=== PATIENT | male | born 1985 | race Hispanic/Latino ===

== ENCOUNTER 2016-09-10 21:14 | Emergency (ER) | payer OTHER ==
[2016-09-10 21:20] VITALS: BP 118/84; PULSE 94; RESP 18; TEMP 98.4; O2SAT 98
--- NOTE | 2016-09-10 21:53 | ED PDOC ---
Upper Extremity Pain/Injury Time Seen by Provider: 09/10/16 21:28 Chief Complaint (Nursing): Finger,Hand,&Wrist Chief Complaint (Provider): left pinky injury History Per: Patient History/Exam Limitations: no limitations Onset/Duration Of Symptoms: Mins (prior to arrival) Current Symptoms Are (Timing): Still Present Additional Complaint(s): Kel Lopez is a 31 year old male, with no previous medical history, who presents to the ED with complaints of a left pinky injury he sustained prior to arrival. Pt reports to playing basketball and reports the basketball hit his left pinky. Pt reports to noticing a deformity in the finger with numbness. PMD: none provided Past Medical History Reviewed: Historical Data, Nursing Documentation, Vital Signs Vital Signs: Last Vital Signs Temp 98.4 F 09/10/16 21:18 Pulse 94 H 09/10/16 21:18 Resp 18 09/10/16 21:18 BP 118/84 09/10/16 21:18 Pulse Ox 98 09/10/16 21:18 - Family History Family History: States: No Known Family Hx - Allergies Allergies/Adverse Reactions: Allergies Allergy/AdvReac Type Severity Reaction Status Date / Time No Known Allergies Allergy Verified 09/10/16 21:17 Review of Systems ROS Statement: Except As Marked, All Systems Reviewed And Found Negative Musculoskeletal: Positive for: Hand Pain (left pinky ) Physical Exam - Reviewed Nursing Documentation Reviewed: Yes Vital Signs Reviewed: Yes - Physical Exam Appears: Positive for: Well, Non-toxic, No Acute Distress Cardiovascular/Chest: Positive for: Regular Rate, Rhythm Respiratory: Positive for: CNT, Normal Breath Sounds Extremity: Positive for: Tenderness, Capillary Refill (< 2 seconds), Deformity ( nonbony. deformity noted suspect of ligament injury ) Neurologic/Psych: Positive for: Alert, Oriented - ECG O2 Sat by Pulse Oximetry: 98 (RA) Pulse Ox Interpretation: Normal Medical Decision Making Medical Decision Making: Initial Impression: ligament injury vs dislocation Initial Plan: * x-ray left hand * reevaluation * * no fx noted to finger. most likely injury to long extensor tendon * will be placed in finger split and advised to f.u with hand surgery. Scribe Attestation: Documented by Corrina Shay, acting as a scribe for Lilian Terry PA-C. Provider Scribe Attestation: All medical record entries made by the Scribe were at my direction and personally dictated by me. I have reviewed the chart and agree that the record accurately reflects my personal performance of the history, physical exam, medical decision making, and the department course for this patient. I have also personally directed, reviewed, and agree with the discharge instructions and disposition Disposition - Clinical Impression Clinical Impression: Finger injury - Patient ED Disposition Is Patient to be Admitted: No Counseled Patient/Family Regarding: Studies Performed, Diagnosis, Need For Followup - Disposition Referrals: Herman Bautista MD [Medical Doctor] - Disposition: Routine/Home Disposition Time: 22:24 Condition: STABLE Instructions: Finger Sprain (ED)
--- NOTE | 2016-09-11 09:49 | RAD ---
PROCEDURE: Left Hand Radiographs. HISTORY: injury 5th finger COMPARISON: None. FINDINGS: BONES: Normal. No fracture. JOINTS: Normal. No osteoarthritic changes. SOFT TISSUES: Normal. OTHER FINDINGS: None. IMPRESSION: No evidence of acute fracture or dislocation.
== END 2016-09-10 22:45 | disposition home or self-care (01) ==
LOC: H.ER 21:14
DX: S69.92XA Unspecified injury of left wrist, hand and finger(s), initial encounter (principal); Y92.310 Basketball court as the place of occurrence of the external cause; Y92.89 Other specified places as the place of occurrence of the external cause